=== PATIENT | male | born 1990 | race Caucasian/White ===

== ENCOUNTER 2017-06-30 11:59 | Inpatient (IN) ==
--- NOTE | 2017-06-30 12:25 | Emergency Department Note ---
Disposition Clinical Impression: Medical clearance for psychiatric admission Drug-induced psychotic disorder Qualifiers: Complication of substance-induced condition: with hallucinations Qualified Code (s): F19.951 - Other psychoactive substance use, unspecified with psychoactive substance-induced psychotic disorder with hallucinations Bipolar disorder Qualifiers: Active/Remission status: remission status unspecified Qualified Code(s): F31.9 - Bipolar disorder, unspecified Disposition: Admitted As Inpatient Condition: Undetermined Time of Disposition: 16:50 Psych HPI - General Chief Complaint: ED Psychiatric Symptoms Stated Complaint: SI, AMS Time Seen by Provider: 06/30/17 12:15 Source: patient Mode of arrival: ambulatory Limitations: no limitations Nursing Notes Reviewed: Yes Vital Signs Reviewed: Yes - History of Present Illness HPI Narrative: 26-year-old male with history of bipolar disorder who is not taking his medications and has not for years arrives [facility] emergency department after self-medicating with heroin and methamphetamines. The patient was found by the police "hunting horses" as well as destroying mailboxes thinking they were animals. The patient is also not sleeping and has not for the past 4 days because of visual and auditory hallucinations of people. The patient is anxious and rocking back and forth in the room consistent with methamphetamine use. The patient states he last used roughly 4- 5 days ago. The patient denies any homicidal ideations and does admit that if he cannot get help he would likely kill himself. The patient's mother is in with the patient in the room and is very concerned about his welfare as he is unable to now take care of himself at home due to his associated mental health. If medical clearance, reason: intoxication, psychiatric condition Duration: constant, getting worse History of similar episodes: Yes Improves with: none Worsens with: none Context: recent drug abuse, not taking psychiatric medications Alleged intoxication: Yes Associated Psychiatric Symptoms: suicidal ideation, auditory hallucinations, visual hallucinations, anxiety Associated symptoms: Reports: denies other symptoms Traumatic symptoms: denies traumatic injury Treatments prior to arrival: [facility]p/police Self harm or harm to others: admits thoughts of self harm - Related Data Home Medications Medication Instructions Recorded Confirmed No Known Home Drugs 06/30/17 06/30/17 Allergies Allergy/AdvReac Type Severity Reaction Status Date / Time No Known Allergies Allergy Verified 06/30/17 12:07 All systems ED: reviewed and negative except as stated. Constitutional: Denies: fever, chills, weakness Cardiovascular: Denies: chest pain Respiratory: Denies: cough, dyspnea, wheezes Gastrointestinal: Denies: abdominal pain, nausea, vomiting Musculoskeletal: Denies: back pain Neurological: Denies: headache Psychiatric: Reports: anxiety, depression, suicidal thoughts, auditory hallucinations, visual hallucinations. Denies: homicidal thoughts Past Medical History - Past Medical History Attestation: Yes The following information was validated with the patient. Source: patient Medical history: Reports: other Surgical history: Reports: non-contributory Psychiatric history: Reports: anxiety, bipolar, depression, prior suicide attempt, previous psychiatric hospitalization - Social History Smoking Status: Current every day smoker Smokeless Tobacco Status: No Alcohol use: Reports: none Drug use: Reports: opiates, marijuana, methamphetamine, IV Drug Use Physical Exam - General Limitations: no limitations General appearance: alert, in no apparent distress, appears intoxicated, anxious - Head Head exam: atraumatic, normocephalic, normal inspection - Eye Eye exam: Present: normal appearance, PERRL, EOMI - ENT ENT exam: normal exam, normal oropharynx, mucous membranes moist - Neck Neck exam: Present: normal inspection, full ROM, trachea midline - Chest Chest inspection: Present: normal inspection, symmetric chest wall rise - Respiratory Respiratory exam: Present: normal lung sounds bilaterally - Cardiovascular Cardiovascular exam: Present: regular rate, normal rhythm, normal heart sounds - Abdominal Exam Abdominal exam: Present: soft, Non-Tender. Absent: tenderness, distention, guarding, rebound, rigidity - Extremities Exam Extremities exam: Present: normal inspection, full ROM. Absent: tenderness, pedal edema - Neurological Exam Neurological exam: Present: alert, CN II-XII intact, normal gait - Psychiatric Psychiatric exam: Present: anxious, manic, suicidal ideation - Skin Skin exam: Present: warm, dry, intact, normal color Course - Reevaluation(s) Reevaluation #1: 1 a called and notified. Medically cleared. Time: 13:23 Vital Signs Temperature 97.7 F 06/30/17 12:08 Pulse Rate 80 06/30/17 12:08 Respiratory Rate 20 06/30/17 12:08 Blood Pressure 113/80 06/30/17 12:08 O2 Sat by Pulse Oximetry 93 06/30/17 12:08 Temperature 97.7 F 06/30/17 12:08 Pulse Rate 80 06/30/17 12:08 Respiratory Rate 20 06/30/17 12:08 Blood Pressure 113/80 06/30/17 12:08 O2 Sat by Pulse Oximetry 93 06/30/17 12:08 Oxygen Delivery Oxygen Delivery Room Air Psych - MDM Narrative Medical decision making narrative: Patient medically cleared in the emergency department. After evaluation by psychiatric team in one A, they feel as though the patient would benefit for admission to a Facility. We will admit the patient at this time. - Lab Data Result diagrams: 06/30/17 12:47 06/30/17 12:47 Lab Results 06/30/17 06/30/17 06/30/17 Range/Units 12:40 12:40 12:47 WBC 12.5 H (4.3-11.1) K/mcL RBC 5.51 H (4.19-5.50) M/mcL Hgb 17.3 H (12.9-16.9) g/dL Hct 47.4 (37.5-50.1) % MCV 86.0 (83.0-100.0) fL MCH 31.4 (28.0-33.3) pg MCHC 36.5 H (31.6-35.5) g/dL RDW 13.0 (11.5-14.5) % Plt Count 291 (140-400) K/mcL MPV 10.6 (9.4-12.4) fL Immature Gran % 0.2 (0-4) % Seg Neutrophils % 49.7 % Lymphocytes % 37.4 % Monocytes % 11.6 % Eosinophils % 0.6 % Basophils % 0.5 % Neutrophils # 6.2 (1.6-8.9) K/mcL Lymphocytes # 4.7 H (0.6-4.6) K/mcL Monocytes # 1.5 H (0.0-1.3) K/mcL Eosinophils # 0.1 (0.0-0.6) K/mcL Basophils # 0.1 (0.0-0.2) K/mcL Sodium (136-145) mEq/L Potassium (3.5-4.5) mEq/L Chloride (98-109) mEq/L Carbon Dioxide (19-29) mEq/L BUN (8-26) mg/dL Creatinine (0.72-1.25) mg/dL Est GFR ( Amer) (> 60) Est GFR (Non-Af Amer) (> 60) BUN/Creatinine Ratio (6-26) Glucose (70-99) mg/dL Calculated Osmolality (280-300) Calcium (8.6-10.8) mg/dL Urine Color Dark Yellow (Yellow) Urine Clarity Cloudy A (Clear) Urine pH 6.0 (5.0-8.0) pH Units Ur Specific [place] 1.025 (1.010-1.025) Urine Protein 30 H (Neg-Trace) mg/dL Urine Glucose (UA) Normal (Normal) mg/dL Urine Ketones Trace H (Negative) mg/dL Urine Blood Negative (Negative) Urine Nitrite Negative (Negative) Urine Bilirubin Small H (Negative) Urine Urobilinogen Normal (Normal) mg/dL Ur Leukocyte Esterase Negative (Negative) Urine Microscopic RBC 0-3 (0-3) per hpf Urine Microscopic WBC 0-3 (0-3) per hpf Ur Squamous Epith Cells Many H (None-Few) per lpf Urine Bacteria Few (None-Few) per hpf Hyaline Casts Many H (None-Few) per lpf Urine Mucus Moderate H (Few) Salicylates (15-30) mg/dL Urine Opiates Screen Negative (Xeajfv=209) ng/mL Acetaminophen (10-30) mcg/mL Ur Barbiturates Screen Negative (Thgawa=119) ng/mL Ur Phencyclidine Scrn Negative (Cutoff=25) ng/mL Ur Amphetamines Screen Positive H (Hkbcrv=1416) ng/mL U Benzodiazepines Scrn Negative (Zykajx=596) ng/mL Urine Cocaine Screen Positive H (Cutoff= 300) ng/mL U Marijuana (THC) Screen Positive H (Cutoff = 50) ng/mL Ethyl Alcohol (0-10) mg/dL 06/30/17 Range/Units 12:47 WBC (4.3-11.1) K/mcL RBC (4.19-5.50) M/mcL Hgb (12.9-16.9) g/dL Hct (37.5-50.1) % MCV (83.0-100.0) fL MCH (28.0-33.3) pg MCHC (31.6-35.5) g/dL RDW (11.5-14.5) % Plt Count (140-400) K/mcL MPV (9.4-12.4) fL Immature Gran % (0-4) % Seg Neutrophils % % Lymphocytes % % Monocytes % % Eosinophils % % Basophils % % Neutrophils # (1.6-8.9) K/mcL Lymphocytes # (0.6-4.6) K/mcL Monocytes # (0.0-1.3) K/mcL Eosinophils # (0.0-0.6) K/mcL Basophils # (0.0-0.2) K/mcL Sodium 137 (136-145) mEq/L Potassium 3.3 L (3.5-4.5) mEq/L Chloride 99 (98-109) mEq/L Carbon Dioxide 25 (19-29) mEq/L BUN 17 (8-26) mg/dL Creatinine 1.38 H (0.72-1.25) mg/dL Est GFR ( Amer) > 60 (> 60) Est GFR (Non-Af Amer) > 60 (> 60) BUN/Creatinine Ratio 12 (6-26) Glucose 131 H (70-99) mg/dL Calculated Osmolality 287 (280-300) Calcium 11.0 H (8.6-10.8) mg/dL Urine Color (Yellow) Urine Clarity (Clear) Urine pH (5.0-8.0) pH Units Ur Specific [place] (1.010-1.025) Urine Protein (Neg-Trace) mg/dL Urine Glucose (UA) (Normal) mg/dL Urine Ketones (Negative) mg/dL Urine Blood (Negative) Urine Nitrite (Negative) Urine Bilirubin (Negative) Urine Urobilinogen (Normal) mg/dL Ur Leukocyte Esterase (Negative) Urine Microscopic RBC (0-3) per hpf Urine Microscopic WBC (0-3) per hpf Ur Squamous Epith Cells (None-Few) per lpf Urine Bacteria (None-Few) per hpf Hyaline Casts (None-Few) per lpf Urine Mucus (Few) Salicylates < 5.0 L (15-30) mg/dL Urine Opiates Screen (Lprugn=625) ng/mL Acetaminophen 3.0 L (10-30) mcg/mL Ur Barbiturates Screen (Tcftcx=784) ng/mL Ur Phencyclidine Scrn (Cutoff=25) ng/mL Ur Amphetamines Screen (Cjinxi=5458) ng/mL U Benzodiazepines Scrn (Snewvr=969) ng/mL Urine Cocaine Screen (Cutoff= 300) ng/mL U Marijuana (THC) Screen (Cutoff = 50) ng/mL Ethyl Alcohol < 10 (0-10) mg/dL - EKG Data EKG attestation: Yes I reviewed and interpreted this EKG. EKG results narrative: Heart rate 1 16 bpm. GA interval 158 ms. QTC 380 ms. Left axis deviation. Sinus tachycardia with no ST elevation or ST depression noted. EKG overall similar morphology to EKG of from 06/25/2009. No acute changes noted. Psychiatric Medical Clearance - Medical Clearance Checklist Medical History: Drug-induced psychotic disorder (Acute) Bipolar disorder (Acute) Medical clearance for psychiatric admission (Acute) No Social History Section defined Current Vitals: Last Vital Signs Temp 97.7 F 06/30/17 12:08 Pulse 80 06/30/17 12:08 Resp 20 06/30/17 12:08 BP 113/80 06/30/17 12:08 Pulse Ox 93 06/30/17 12:08 Psychiatric Lab Panel: Drug Levels and Toxicity 06/30/17 06/30/17 12:40 12:47 Urine Opiates Screen Negative Acetaminophen 3.0 L Ur Barbiturates Screen Negative Ur Phencyclidine Scrn Negative Ur Amphetamines Screen Positive H U Benzodiazepines Scrn Negative Urine Cocaine Screen Positive H U Marijuana (THC) Screen Positive H Ethyl Alcohol < 10 Abnormal Labs: Abnormal lab results WBC 12.5 K/mcL (4.3-11.1) H 06/30/17 12:47 RBC 5.51 M/mcL (4.19-5.50) H 06/30/17 12:47 Hgb 17.3 g/dL (12.9-16.9) H 06/30/17 12:47 MCHC 36.5 g/dL (31.6-35.5) H 06/30/17 12:47 Lymphocytes # 4.7 K/mcL (0.6-4.6) H 06/30/17 12:47 Monocytes # 1.5 K/mcL (0.0-1.3) H 06/30/17 12:47 Potassium 3.3 mEq/L (3.5-4.5) L 06/30/17 12:47 Creatinine 1.38 mg/dL (0.72-1.25) H 06/30/17 12:47 Glucose 131 mg/dL (70-99) H 06/30/17 12:47 Calcium 11.0 mg/dL (8.6-10.8) H 06/30/17 12:47 Urine Clarity Cloudy (Clear) A 06/30/17 12:40 Urine Protein 30 mg/dL (Neg-Trace) H 06/30/17 12:40 Urine Ketones Trace mg/dL (Negative) H 06/30/17 12:40 Urine Bilirubin Small (Negative) H 06/30/17 12:40 Ur Squamous Epith Cells Many per lpf (None-Few) H 06/30/17 12:40 Hyaline Casts Many per lpf (None-Few) H 06/30/17 12:40 Urine Mucus Moderate (Few) H 06/30/17 12:40 Salicylates < 5.0 mg/dL (15-30) L 06/30/17 12:47 Acetaminophen 3.0 mcg/mL (10-30) L 06/30/17 12:47 Ur Amphetamines Screen Positive ng/mL (Jlhaob=4342) H 06/30/17 12:40 Urine Cocaine Screen Positive ng/mL (Cutoff= 300) H 06/30/17 12:40 U Marijuana (THC) Screen Positive ng/mL (Cutoff = 50) H 06/30/17 12:40 Attestation Statement - Attestation Attestation: I examined this patient and my medical decision-making was reviewed with the Resident Physician, Dr. Evans. I agree with the documented findings, disposition and treatment plan as described except to the extent set forth below. Patient is a 26-year-old white male who is brought to the emergency department by his mother today with concerns for suicidal ideation as well as auditory and visual hallucinations. Patient had been managed for a time on medications and was seeing psychiatrist as an outpatient until their insurance changed approximately 2 years ago. At that point time his family physician resumed care and continued his medicine for his bipolar disorder. They have gone through dosages changing due to side effects that the patient has complained of over the years. Patient recently stopped taking his medication as he had "been feeling quite good" and mother reports that he has been missing for the past 72 hours. Apparently he has not been sleeping due to the hallucinations, and he was approximately found today by police destroying mailboxes that he thought were "animals that he needed to kill". Patient is frustrated by the "noise in his head" and states that he is having thoughts of killing himself but no specific plan. Patient's mother states that he tends to cycle like this and he will have. The time we does quite well holds a job, lives independently and then woke off his medications and then self medicate with substance abuse. Patient admits to heroin and methamphetamine use in the last 24 hours to self medicate. Patient appears anxious at bedside is rocking back and forth but is cooperative with questioning. Vital signs are stable. I agree patient's physical exam findings as documented. Patient was medically evaluated and patient has no alcohol in his system. He does have the presence of substances that he mentioned on intake. Otherwise patient is medically cleared for further psychiatric evaluation. A pink slip was signed and placed on the patient's chart due to his suicidal ideation. At this time we are awaiting Ia evaluation and recommendations. Ia recommends inpatient evaluation and management. Patient will be admitted to the psychiatric floor for further treatment.
[2017-06-30 12:59] LABS: Bilirubin,Urine Small (Negative); Blood,Urine Negative (Negative); Clarity,Urine Cloudy (Clear); Color,Urine Dark Yellow (Yellow); Glucose,Urine (UA) Normal (Normal); Ketones,Urine Trace mg/dL (Negative); Leukocyte Esterase,Urine Negative (Negative); Nitrite,Urine Negative (Negative); Protein,Urine 30 mg/dL (Neg-Trace); Specific Gravity,Urine 1.025 (1.010-1.025); Urobilinogen,Urine Normal (Normal)
[2017-06-30 13:00] LABS: RBC,Urine 0-3 per hpf (0-3); Squamous Epithelial Cell,Urine Many per lpf (None-Few); WBC,Urine 0-3 per hpf (0-3)
[2017-06-30 13:04] LABS: Amphetamine Screen,Urine Positive ng/mL (Cutoff=1000); Barbiturate Screen,Urine Negative ng/mL (Cutoff=200); Benzodiazepines Screen,Urine Negative ng/mL (Cutoff=200); Cannabinoid Screen,Urine Positive ng/mL (Cutoff = 50); Cocaine Screen,Urine Positive ng/mL (Cutoff= 300); Opiate Screen,Urine Negative ng/mL (Cutoff=300); Phencyclidine Screen,Urine Negative ng/mL (Cutoff=25)
[2017-06-30 13:09] LABS: Basophils # 0.1 K/mcL (0.0-0.2); Basophils % 0.5 %; Eosinophils # 0.1 K/mcL (0.0-0.6); Eosinophils % 0.6 %; Hematocrit 47.4 % (37.5-50.1); Hemoglobin 17.3 g/dL (12.9-16.9); Immature Granulocytes % 0.2 % (0-4); Lymphocytes # 4.7 K/mcL (0.6-4.6); Lymphocytes % 37.4 %; Mean Corpuscular HGB Conc 36.5 g/dL (31.6-35.5); Mean Corpuscular Hemoglobin 31.4 pg (28.0-33.3); Mean Platelet Volume 10.6 fL (9.4-12.4); Monocytes # 1.5 K/mcL (0.0-1.3); Monocytes % 11.6 %; Neutrophils # 6.2 K/mcL (1.6-8.9); Platelet Count 291 K/mcL (140-400); Red Blood Count 5.51 M/mcL (4.19-5.50); Segmented Neutrophils % 49.7 %
[2017-06-30 13:10] LABS: Hyaline Casts,Urine Many per lpf (None-Few)
[2017-06-30 13:11] LABS: Bacteria,Urine Few per hpf (None-Few); Mucus,Urine Moderate (Few)
[2017-06-30 13:17] LABS: BUN/Creatinine Ratio 12 (6-26); Blood Urea Nitrogen 17 mg/dL (8-26); Carbon Dioxide 25 mEq/L (19-29); Chloride 99 mEq/L (98-109); Ethanol < 10 mg/dL (0-10); Glucose 131 mg/dL (70-99); Osmolality,Calculated 287 (280-300); Potassium 3.3 mEq/L (3.5-4.5); Salicylate < 5.0 mg/dL (15-30); Sodium 137 mEq/L (136-145); eGFR For African Americans > 60 (> 60); eGFR For Non-African Americans > 60 (> 60)
[2017-06-30] MEDS ORDERED: MOM Conc 10 ML UD.LIQ PO PRN ×2 (17:43→21:00)
[2017-06-30] MEDS ORDERED: Nicotine 2 MG GUM BC PRN (17:43)
[2017-06-30] MEDS ORDERED: hydrOXYzine pamoate 25 MG CAPSULE PO PRN ×2 (17:43→18:10)
[2017-06-30] MEDS ORDERED: Mag Hydrox/Al Hydrox/Simeth 30 ML UDC PO PRN (17:43)
[2017-06-30] MEDS ORDERED: Ibuprofen 400 MG TABLET PO PRN (18:10)
[2017-06-30] MEDS ORDERED: Haloperidol Lactate 5 MG/ML VIAL IM ONE (18:23)
[2017-06-30] MEDS ORDERED: *HR* LORazepam 1 MG TABLET PO PRN (18:26)
[2017-06-30] MEDS ORDERED: Haloperidol Lactate 5 MG/ML VIAL IM PRN (18:38)
[2017-06-30 20:03] LABS: Acetaminophen < 1.0 mcg/mL (10-30)
[2017-07-01] MEDS ORDERED: Nicotine 21 MG PATCH.TD24 TD SCH (09:00)
[2017-07-01] MEDS: Nicotine 21 MG PATCH.TD24 TD SCH (09:28)
--- NOTE | 2017-07-01 11:34 | Psychiatry History & Physical ---
Date of Encounter: 07/01/17 Time of Encounter: 11:00 History of Present Illness Medicare Admission Attestation: For traditional Medicare patients the provided hospital inpatient services are reasonable and necessary and in the case of services not specified as inpatient -only under 42 CFR 419.22 (n), that they are appropriately provided as inpatient services in accordance 42 CFR 412.3. For [facility] the patient may reasonably be expected to be discharged or transferred to a hospital within 96 hours after admission to the Critical [facility]. Admitted From: Emergency Dept History of Present Illness: Mr. Black is a 26 year old male was brought to the hospital by his mother was concerned for his mental health. Mr. Black reports that he has a diagnosis of bipolar disorder and has taken medications in the past but is not currently taking any meds or mood or anxiety. He does admit to using meth as well as cannabis regularly and he states that one he does use that he tends to have paranoid thoughts. He did feel paranoid on arrival to the hospital. Today he feels much better. He reports he sleeps well when he has been up for 4 or 5 days after using drugs. Otherwise he has difficulty falling asleep. He states that he does not know if he is depressed but he does struggle with anxiety and occasionally has panic attacks especially in social situations. He occasionally hears mumbling but no command hallucinations and patient is unsure if this is related to the drugs or not. He denies any current suicidal ideations. He denies homicidal ideations. He does have decreased need for sleep but only when drugs. He does report low mood and increased stress because his mother is encouraging him to move out and get a job and has been unable to do these. Recently his brother moved back to town and he states this has not been good because he ends up using drugs with his brother. Brother was recently kicked out of the home by mom for using. Patient also reports a history of difficulty functioning cognitively and did not finish high school. Past Med Surg Social Fam HX - Past Medical History Medical history: other - Past Psychiatric History Psychiatric history: Reports: bipolar Past psychiatric history details: Patient has previous diagnosis of bipolar disorder. He has been off meds for some time. He does not feel he needs meds for bipolar disorder. - Past Surgical History Surgical History: non-contributory - Social History Smoking Status: Current every day smoker Smokeless Tobacco Status: No Alcohol use: none Drug use: opiates, marijuana, methamphetamine, IV Drug Use Medications & Allergies No Known Home Drugs 06/30/17 [History] 3 Allergy/AdvReac Type Severity Reaction Status Date / Time No Known Allergies Allergy Verified 06/30/17 12:07 Review of Systems Constitutional: Denies: fever, chills, weakness, weight change Eyes: Denies: eye pain, vision change Ears, Nose, Throat: Denies: ear pain, throat pain, dental pain, hearing loss, congestion Cardiovascular: Denies: chest pain, palpitations, dyspnea on exertion Respiratory: Denies: cough, dyspnea, wheezes Gastrointestinal: Denies: abdominal pain, nausea, vomiting, diarrhea, constipation Genitourinary male: Denies: urgency, dysuria, frequency, genital lesions Genitourinary female: Denies: urgency, dysuria, frequency, abnormal menses, dyspareunia Musculoskeletal: Denies: joint swelling, joint pain Integumentary: Denies: rash, lesions, pruritus Neurological: Denies: headache, weakness, numbness, memory loss Psychiatric: Reports: depression, anxiety, abnormal sleep pattern, hopelessness , irritability, mood swings, panic attacks, other (Paranoia). Denies: suicidal ideation Endocrine: Denies: fatigue, heat or cold intolerance Hematologic/Lymphatic: Denies: easy bruising, lymphadenopathy Allergic/Immunologic: Denies: urticaria, itchy eyes Mental Status Exam Patient orientation: Yes Person, Yes Time, Yes Place Level of alertness: Alert Patient appearance: Unkempt Behavior: calm, cooperative Psychomotor activity: Slowed Eye contact: Minimal Contact Mood description: Euthymic/stable Affect description: dysphoric, incongruent with mood Speech pattern: Slowed Speech volume: Normal Thought process: [place] Thought content: No Suicidal ideation, No Homicidal ideation, Yes Paranoid delusion Perceptual disturbances: No Auditory hallucinations, No Visual hallucinations Attention span: Capable of Focused Attention Memory description: Grossly Intact Patient reliability: Questionable Historian Intelligence estimate: Below Average Judgment: Limited Insight: Minimal Exam - HEENT Head exam IM: Present: atraumatic Eye exam IM: Present: EOMI - Neurological Neurological exam IM: Present: CN II-XII intact - Extremities Extremities exam IM: Present: full ROM - Skin Skin exam IM: Present: dry, warm Results - Vital Signs Vital signs: Temp Pulse Resp BP Pulse Ox 97.6 F 133 20 111/80 93 07/01/17 09:00 07/01/17 09:00 07/01/17 09:00 07/01/17 09:00 06/30/17 12:08 - Labs Labs: Laboratory Last Values WBC 12.5 K/mcL (4.3-11.1) H 06/30/17 12:47 RBC 5.51 M/mcL (4.19-5.50) H 06/30/17 12:47 Hgb 17.3 g/dL (12.9-16.9) H 06/30/17 12:47 Hct 47.4 % (37.5-50.1) 06/30/17 12:47 MCV 86.0 fL (83.0-100.0) 06/30/17 12:47 MCH 31.4 pg (28.0-33.3) 06/30/17 12:47 MCHC 36.5 g/dL (31.6-35.5) H 06/30/17 12:47 RDW 13.0 % (11.5-14.5) 06/30/17 12:47 Plt Count 291 K/mcL (140-400) 06/30/17 12:47 MPV 10.6 fL (9.4-12.4) 06/30/17 12:47 Immature Gran % 0.2 % (0-4) 06/30/17 12:47 Seg Neutrophils % 49.7 % 06/30/17 12:47 Lymphocytes % 37.4 % 06/30/17 12:47 Monocytes % 11.6 % 06/30/17 12:47 Eosinophils % 0.6 % 06/30/17 12:47 Basophils % 0.5 % 06/30/17 12:47 Neutrophils # 6.2 K/mcL (1.6-8.9) 06/30/17 12:47 Lymphocytes # 4.7 K/mcL (0.6-4.6) H 06/30/17 12:47 Monocytes # 1.5 K/mcL (0.0-1.3) H 06/30/17 12:47 Eosinophils # 0.1 K/mcL (0.0-0.6) 06/30/17 12:47 Basophils # 0.1 K/mcL (0.0-0.2) 06/30/17 12:47 Sodium 137 mEq/L (136-145) 06/30/17 12:47 Potassium 3.3 mEq/L (3.5-4.5) L 06/30/17 12:47 Chloride 99 mEq/L (98-109) 06/30/17 12:47 Carbon Dioxide 25 mEq/L (19-29) 06/30/17 12:47 BUN 17 mg/dL (8-26) 06/30/17 12:47 Creatinine 1.38 mg/dL (0.72-1.25) H 06/30/17 12:47 Est GFR ( Amer) > 60 (> 60) 06/30/17 12:47 Est GFR (Non-Af Amer) > 60 (> 60) 06/30/17 12:47 BUN/Creatinine Ratio 12 (6-26) 06/30/17 12:47 Glucose 131 mg/dL (70-99) H 06/30/17 12:47 Calculated Osmolality 287 (280-300) 06/30/17 12:47 Calcium 11.0 mg/dL (8.6-10.8) H 06/30/17 12:47 Urine Color Dark Yellow (Yellow) 06/30/17 12:40 Urine Clarity Cloudy (Clear) A 06/30/17 12:40 Urine pH 6.0 pH Units (5.0-8.0) 06/30/17 12:40 Ur Specific [place] 1.025 (1.010-1.025) 06/30/17 12:40 Urine Protein 30 mg/dL (Neg-Trace) H 06/30/17 12:40 Urine Glucose (UA) Normal mg/dL (Normal) 06/30/17 12:40 Urine Ketones Trace mg/dL (Negative) H 06/30/17 12:40 Urine Blood Negative (Negative) 06/30/17 12:40 Urine Nitrite Negative (Negative) 06/30/17 12:40 Urine Bilirubin Small (Negative) H 06/30/17 12:40 Urine Urobilinogen Normal mg/dL (Normal) 06/30/17 12:40 Ur Leukocyte Esterase Negative (Negative) 06/30/17 12:40 Urine Microscopic RBC 0-3 per hpf (0-3) 06/30/17 12:40 Urine Microscopic WBC 0-3 per hpf (0-3) 06/30/17 12:40 Ur Squamous Epith Cells Many per lpf (None-Few) H 06/30/17 12:40 Urine Bacteria Few per hpf (None-Few) 06/30/17 12:40 Hyaline Casts Many per lpf (None-Few) H 06/30/17 12:40 Urine Mucus Moderate (Few) H 06/30/17 12:40 Salicylates < 5.0 mg/dL (15-30) L 06/30/17 12:47 Urine Opiates Screen Negative ng/mL (Flhrmo=270) 06/30/17 12:40 Acetaminophen < 1.0 mcg/mL (10-30) L 06/30/17 12:47 Ur Barbiturates Screen Negative ng/mL (Ztrten=040) 06/30/17 12:40 Ur Phencyclidine Scrn Negative ng/mL (Cutoff=25) 06/30/17 12:40 Ur Amphetamines Screen Positive ng/mL (Mbhnpo=9718) H 06/30/17 12:40 U Benzodiazepines Scrn Negative ng/mL (Gpolhe=001) 06/30/17 12:40 Urine Cocaine Screen Positive ng/mL (Cutoff= 300) H 06/30/17 12:40 U Marijuana (THC) Screen Positive ng/mL (Cutoff = 50) H 06/30/17 12:40 Ethyl Alcohol < 10 mg/dL (0-10) 06/30/17 12:47 Assessment and Plan (1) Depression Current visit: Yes Status: Acute Plan: Admit inpatient for safety and stabilization, Close observation, Suicide Precautions per unit protocol, Encourage participation in unit milieu, Group Therapy, Monitor sleep, Monitor appetite Additional Plan: We will admit patient to 1 a for psychiatric stabilization. He does appear to be lower functioning and has difficulty expressing his mood issues. We will contact mom with his permission to discuss his mental state prior to coming to the hospital. He is agreeable to starting a medication to help with mood, anxiety and sleep. Encourage positive coping strategies and group attendance. Risks, benefits, side effects, alternatives discussed w/pt: Yes Patient agreeable to treatment: Yes Plans for Post Hospital Care: Home Estimated Length of Stay (Days): 3 Qualifiers: Depression Type: major depressive disorder Major depression recurrence: recurrent Active/Remission status: currently active Major depression episode severity: moderate Qualified Code(s): F33.1 - Major depressive disorder, recurrent, moderate (2) Drug-induced psychotic disorder Current visit: Yes Status: Acute Plan: Admit inpatient for safety and stabilization, Close observation, Suicide Precautions per unit protocol, Encourage participation in unit milieu, Group Therapy, Monitor sleep, Monitor appetite Additional Plan: Paranoia is resolving. Symptoms are likely secondary to drug use. Continue to monitor behavior. Estimated Length of Stay (Days): 3 Qualifiers: Complication of substance-induced condition: with delusions Qualified Code( s): F19.950 - Other psychoactive substance use, unspecified with psychoactive substance-induced psychotic disorder with delusions (3) Methamphetamine abuse Current visit: Yes Status: Acute Plan: Admit inpatient for safety and stabilization, Close observation, Suicide Precautions per unit protocol, Encourage participation in unit milieu, Group Therapy, Monitor sleep, Monitor appetite Additional Plan: We will encourage patient to discontinue methamphetamine use was the likely cause for his paranoia. Encourage patient to consider outpatient substance abuse treatment. Risks, benefits, side effects, alternatives discussed w/pt: Yes Patient agreeable to treatment: Yes (4) Cannabis dependence Current visit: Yes Status: Acute Plan: Admit inpatient for safety and stabilization Additional Plan: Attempted to educate the patient by Alanis can be detrimental to the patient's mood and anxiety symptoms. Recommend he continue cannabis and consider outpatient substance abuse treatment. Risks, benefits, side effects, alternatives discussed w/pt: Yes Patient agreeable to treatment: Yes Plans for Post Hospital Care: Home
--- NOTE | 2017-07-01 18:05 | Electrocardiograph Report ---
[place] [id number] Test Date: 2017-06-30 Pat Name: Anival Black Department: 103 Room: 1A23 Gender: M Independent Sales Representative: : 1990 Requested By: David Evans Order Number: [id number] Reading MD: Christopher Waller MD Measurements Intervals [place] Rate: 116 P: 59 MO: 158 QRS: -42 QRSD: 104 T: 33 QT: 311 QTc: 380 Interpretive Statements SINUS TACHYCARDIA MARKED LEFT AXIS DEVIATION VOLTAGE CRITERIA FOR LVH Poor R wave progression Electronically Signed On 07-01-2017 18:03:46 EDT by Christopher Waller MD
[2017-07-01] MEDS ORDERED: Mirtazapine 15 MG TABLET PO SCH (21:00)
[2017-07-02] MEDS: Nicotine 21 MG PATCH.TD24 TD SCH (08:48)
--- NOTE | 2017-07-02 09:43 | Discharge Summary ---
Date of Encounter: 07/02/17 Time of Encounter: 08:45 Diagnosis - Discharge Diagnosis (1) Drug-induced psychotic disorder Priority: Primary Status: Acute Qualifiers: Complication of substance-induced condition: with delusions Qualified Code( s): F19.950 - Other psychoactive substance use, unspecified with psychoactive substance-induced psychotic disorder with delusions (2) Depression Priority: Secondary Status: Acute Qualifiers: Depression Type: major depressive disorder Major depression recurrence: recurrent Active/Remission status: currently active Major depression episode severity: moderate Qualified Code(s): F33.1 - Major depressive disorder, recurrent, moderate (3) Methamphetamine abuse Priority: Secondary Status: Acute (4) Cannabis dependence Priority: Secondary Status: Acute Medications - Discharge Medications Prescriptions: hydrOXYzine pamoate [HydrOXYzine Pamoate] 25 mg PO TID PRN #90 capsule PRN Reason: Anxiety Mirtazapine [Remeron] 15 mg PO HS #30 tablet Mirtazapine [Remeron] 15 mg PO HS #30 tablet 07/02/17 [Rx] hydrOXYzine pamoate [HydrOXYzine Pamoate] 25 mg PO TID PRN #90 capsule 07/02/17 [Rx] 3 Allergy/AdvReac Type Severity Reaction Status Date / Time No Known Allergies Allergy Verified 06/30/17 12:07 Provider Date of admission: 07/01/17 11:34 Primary care physician: PCP NONE Discharging clinician: Trudi Valencia Assessment and Plan - Patient/Caregiver Discharge Instructions Activity: resume usual activities as tolerated Diet: regular diet - Follow up Plan Follow up with: NONE,PCP [Primary Care Provider] - KEYSHAWN AGUIAR [Other] Functional capacity at discharge: independent ambulation Overall status at discharge: Stable Disposition: Home, Self-Care Hospital Course Hospital course: Mr. Black is a 26 year old male with a history of methamphetamine use, anxiety, borderline intellectual functioning who presented to the hospital with increasing paranoia and anxiety. Patient intermittently uses methamphetamines as well as marijuana. He was admitted to for psychiatric stabilization. Patient was incorporated into the therapeutic milieu and offer group and individual as well as recreational therapy. He was also offered psychoeducational materials and supportive therapy. He was placed on suicide precautions and close observation per unit protocol. Patient was started on Remeron 15 mg by mouth daily at bedtime for sleep and mood symptoms. He tolerated the medication well and denied side effects. Throughout the course of the hospital stay his paranoia and anxiety decreased. Patient does have some insight into the fact that his symptoms increase when he uses drugs. We discussed the importance of discontinuing drug use. Mom is supportive and he lives with her. Mom did notice improvement in overall mood and symptoms since arrival to the hospital. The time of discharge he denied any suicidal or homicidal ideation, intent, or plan. He was organized and future oriented. Patient was willing to continue treatment as an outpatient. He denied paranoia. He is discharged in stable condition. - Time Spent with Patient Total time spent providing and/or coordinating discharge services: Less than 30 minutes Quality - Multiple Antipsychotics Patient discharged on 2 or more antipsychotic medications: No Procedures - Procedures Procedures: Medication Management, Crisis Stabilization, Supportive Therapy, Group Therapy, Psychoeducational Therapy Mental Status Exam - Mental Status Exam Patient orientation: Yes Person, Yes Time, Yes Place Level of alertness: Alert Patient appearance: Appropriate, Well Groomed Behavior: calm, cooperative Psychomotor activity: Normal Eye contact: Minimal Contact Mood description: Euthymic/stable Affect description: congruent with mood, full range Speech pattern: Normal rate, Normal rhythm, Normal tone Speech Volume: Normal Thought process: Linear, Goal Oriented, [place], Slowed Thinking Thought Content: No Suicidal ideation, No Homicidal ideation, No Overt delusions Perceptual Disturbances: No Auditory hallucinations, No Visual hallucinations Judgment: Limited Insight: Partial
[2017-07-02 10:08] VITALS: BP 111/76
== END 2017-07-02 10:50 | disposition home or self-care (01) | DRG 751 ==
LOC: EMEROO 11:59 → INTOOBSV 17:03 → 1ANU 17:03
PROVIDERS: ADMIT Psychiatry & Neurology Psychiatry; ATTEND Psychiatry & Neurology Psychiatry